=== PATIENT | female | born 1995 | race American Indian/Alaskan Native ===

== ENCOUNTER 2017-04-07 07:17 | Inpatient (IN) | payer MEDICAID ==
[2017-04-07] MEDS ORDERED: Bupivacaine 0.5% 30 ML SDV ONE (11:07)
[2017-04-07] MEDS ORDERED: Morphine PF 1 MG/ML Amp ONE (11:11)
--- NOTE | 2017-04-07 11:15 | PCM.PREANE ---
Preanesthetic Assessment - Procedure Proposed Procedure: Repeat C Section - Anesthesia/Transfusion/Family Hx Anesthesia History: Prior Anesthesia Without Reaction Family History of Anesthesia Reaction: No Transfusion History: No Prior Transfusion(s) - Review of Systems General: No Symptoms Pulmonary: No Symptoms Cardiovascular: No Symptoms Gastrointestinal: No Symptoms Neurological: No Symptoms Other: Reports: None - Physical Assessment NPO Status Date: 04/07/17 NPO Status Time: 10:30 (Sip Water ) Pulse: 78 O2 Sat by Pulse Oximetry: 98 Respiratory Rate: 18 Blood Pressure: 146/104 Temperature: 97.7 C Weight: 119.748 kg ASA Class: 2 Mental Status: Alert & Oriented x3 Airway Class: Mallampati = 1 Dentition: Reports: Normal Dentition Thyro-Mental Finger Breadths: 3 Mouth Opening Finger Breadths: 3 ROM/Head Extension: Full Lungs: Clear to Auscultation, Normal Respiratory Effort Cardiovascular: Regular Rate, Regular Rhythm - Allergies Allergies/Adverse Reactions: Allergies Allergy/AdvReac Type Severity Reaction Status Date / Time No Known Allergies Allergy Verified 12/23/15 05:17 - Acknowledgements Anesthesia Type Planned: Spinal Pt an Appropriate Candidate for the Planned Anesthesia: Yes Alternatives and Risks of Anesthesia Discussed w Pt/Guardian: Yes Pt/Guardian Understands and Agrees with Anesthesia Plan: Yes PreAnesthesia Questionnaire - Past Health History Medical/Surgical History: Denies 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 [No Known Home Meds] 08/09/15 [History] - CURRENT (IN HOUSE) MEDS Current Meds: Current Medications Citric Acid/Sodium Citrate (Bicitra Solution) 30 ml PO ONETIME ONE Stop: 04/07/17 11:31 Lactated Ringer's (Ringers, Lactated) 1,000 mls @ 125 mls/hr IV ASDIRECTED LEELEE Metoclopramide HCl (Reglan) 10 mg IVPUSH ONETIME ONE Stop: 04/07/17 11:31
--- NOTE | 2017-04-07 11:16 | PCM.LDHP ---
L&D History of Present Illness - General Date of Service: 04/07/17 Admit Problem/Dx: Patient Status Order with Admit Dx/Problem 04/07/17 10:58 Patient Status [ADT] Routine Admission Diagnosis/Problem Admission Diagnosis/Problem Normal labor Source of Information: Patient History Limitations: Reports: No Limitations - History of Present Illness Introduction:: 21 y/o MADDI 04/20/2017 twin gestation with Spontaneous rupture of membranes at approximately 1045 this AM when collecting urine for clinic visit. Cecilia/Transverse lie, prior CS. Had repeat previously scheduled for 04/20/17. GBS carrier. Uncertain dates. EGA 38w1d. Plan repeat CS Improves with: Reports: None Worsens with: Reports: None Associated Symptoms: Reports: N - Related Data Allergies/Adverse Reactions: Allergies Allergy/AdvReac Type Severity Reaction Status Date / Time No Known Allergies Allergy Verified 12/23/15 05:17 Home Medications: Home Meds . 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: : 2 Para: 1 (1001) LMP (Approximate): Psychiatric History: Reports: Depression - Past Surgical History HEENT Surgical History: Reports: Tonsillectomy Social & Family History - Family History Family Medical History: Noncontributory - Tobacco Use Smoking Status *Q: Current Every Day Smoker Years of Tobacco use: 12 Packs/Tins Daily: 0.5 - Recreational Drug Use Recreational Drug Use: No H&P Review of Systems - Review of Systems: Review Of Systems: See Below General: Reports: No Symptoms HEENT: Reports: No Symptoms Pulmonary: Reports: No Symptoms Cardiovascular: Reports: No Symptoms Gastrointestinal: Reports: No Symptoms Genitourinary: Reports: No Symptoms Musculoskeletal: Reports: No Symptoms Skin: Reports: No Symptoms Psychiatric: Reports: No Symptoms Neurological: Reports: No Symptoms Hematologic/Lymphatic: Reports: No Symptoms Immunologic: Reports: No Symptoms L&D Exam - Exam Exam: See Below - OB Specific Fundal Height In cm: 44 ([facility]OM CL 1045 04/07/17) Contraction Intensity: Mild Movement: Active Heart Tones: Present Heart Tones per Min: 140 Heart Rate (FHR) Variability: Moderate (6-25 bmp) Presentation: Breech (Breech/transverse lie twins) - Morales Score Morales Score Cervix Position: Posterior Morales Score Consistency: Soft Morales Score Effacement: 31-50% Morales Score Dilation: 1-2 cm Morales Score Infant's Station: -3 Morales Score Total: 4 - Exam General: Alert, Oriented HEENT: Conjunctiva Clear, Mucosa Moist & [place], TMs Clear, PERRLA Neck: Supple, Trachea Midline Lungs: Clear to Auscultation, Normal Respiratory Effort Cardiovascular: Regular Rate, Regular Rhythm GI/Abdominal Exam: Normal Bowel Sounds, Soft, Non-Tender Genitourinary: Normal external exam, Normal bimanual exam, Normal speculum exam Extremities: Normal Inspection, Normal Range of Motion, Non-Tender, No Pedal Edema, Normal Capillary Refill Skin: Warm, Dry, Intact Neurological: Reflexes Equal Bilateral Psychiatric: Alert, Normal Affect, Normal Mood - Problem List (1) 38 weeks gestation of SNOMED Code(s): 70933042 ICD Code: Z3A.38 - 38 WEEKS GESTATION OF Status: Acute Current Visit: Yes (2) GBS carrier SNOMED Code(s): 2494022240281 ICD Code: Z22.330 - CARRIER OF GROUP B STREPTOCOCCUS Status: Acute Current Visit: Yes (3) Twin gestation in third trimester SNOMED Code(s): 06741418 ICD Code: O30.003 - TWIN PREG, UNSP NUM PLCNTA & AMNIO SACS, THIRD TRIMESTER Status: Acute Current Visit: Yes Qualifiers: Multiple gestation type: dichorionic and diamniotic Qualified Code(s): O30.043 - Twin , dichorionic/diamniotic, third trimester (4) Twin delivery by SNOMED Code(s): 870758722 ICD Code: O30.009 - TWIN , UNSP NUM PLCNTA & AMNIO SACS, UNSP TRIMESTER Status: Acute Current Visit: Yes (5) History of delivery affecting SNOMED Code(s): 550714662 ICD Code: O34.219 - MATERNAL CARE FOR UNSP TYPE SCAR FROM PREVIOUS DEL Status: Acute Current Visit: Yes Problem List Initiated/Reviewed/Updated: No Orders Last 24hrs: Active Orders 24 hr Category Date Time Status Patient Status [ADT] Routine ADT 04/07/17 10:58 Active Communication Order [RC] ROUTINE Care 04/07/17 10:58 Active Heart Tones [RC] PER UNIT ROUTINE Care 04/07/17 10:58 Active Procedure Site Prep Instruct [RC] ASDIRECTED Care 04/07/17 10:58 Active Verify Patient Consent Obtain [RC] PER UNIT ROUTINE Care 04/07/17 10:58 Active Vital Signs [RC] PFP Care 04/07/17 10:58 Active CBC WITH AUTO DIFF [HEME] Stat Lab 04/07/17 10:58 Ordered TYPE AND SCREEN [BBK] Stat Lab 04/07/17 10:58 Ordered Citric Acid/Sodium Citrate [Bicitra Solution] Med 04/07/17 11:30 Once 30 ml PO ONETIME ONE Lactated Ringers [Ringers, Lactated] 1,000 ml Med 04/07/17 11:00 Active IV ASDIRECTED Metoclopramide [Reglan] Med 04/07/17 11:30 Once 10 mg IVPUSH ONETIME ONE Peripheral IV Insertion Adult [OM.PC] Routine Oth 04/07/17 10:58 Ordered Schedule Procedure [COMM] Per Unit Routine Oth 04/07/17 10:58 Ordered Resuscitation Status Routine Resus Stat 04/07/17 10:58 Ordered Medication Orders Citric Acid/Sodium Citrate (Bicitra Solution) 30 ml PO ONETIME ONE Stop: 04/07/17 11:31 Lactated Ringer's (Ringers, Lactated) 1,000 mls @ 125 mls/hr IV ASDIRECTED LEELEE Metoclopramide HCl (Reglan) 10 mg IVPUSH ONETIME ONE Stop: 04/07/17 11:31 Assessment/Plan Comment:: Plan repeat section.
[2017-04-07] MEDS ORDERED: Citric Acid/Sodium Citrate Solution 30 ML Cup PO ONE (11:30)
[2017-04-07] MEDS ORDERED: Metoclopramide 10 MG/2 ML SDV IVPUSH ONE (11:30)
[2017-04-07] MEDS ORDERED: ceFAZolin 1 GM Vial ONE ×2 (11:31→11:42)
[2017-04-07] MEDS: Lactated Ringers 1,000 ML IV SCH ×2 (11:34→13:18)
[2017-04-07] MEDS ORDERED: Ketorolac 30 MG/ML SDV ONE (12:15)
[2017-04-07] MEDS ORDERED: Lactated Ringers 1,000 ML ONE (12:18)
[2017-04-07] MEDS ORDERED: Oxytocin 10 Units/1 ML SDV ONE (12:18)
[2017-04-07] MEDS ORDERED: diphenhydrAMINE 50 MG/ML SDV IVPUSH PRN ×2 (12:44→13:15)
--- NOTE | 2017-04-07 12:46 | PCM.POSTAN ---
POST ANESTHESIA ASSESSMENT - MENTAL STATUS Mental Status: Alert, Oriented - VITAL SIGNS Pulse Rate: 63 SaO2: 97 Resp Rate: 10 Blood Pressure: 117/61 Temperature: 36.3 C - RESPIRATORY Respiratory Status: Respiratory Rate WNL, Airway Patent, O2 Saturation Stable, Supplemental Oxygen - CARDIOVASCULAR CV Status: Pulse Rate WNL, Blood Pressure Stable - GASTROINTESTINAL GI Status: No Symptoms - PAIN Pain Score: 0 - POST OP HYDRATION Hydration Status: Adequate & Stable - OBSERVATIONS Free Text/Narrative:: no anesthesia complications noted
--- NOTE | 2017-04-07 12:56 | PCM.OPNOTE ---
- General Post-Op/Procedure Note Date of Surgery/Procedure: 04/07/17 Operative Procedure(s): Low segment transverse repeat Pre Op Diagnosis: Twin gestation breech transverse lie, spontaneous premature rupture membranes less than 24 hours before delivery. Previous section. 38 weeks 1 day. Post-Op Diagnosis: Same Anesthesia Technique: Spinal Primary Surgeon: Mauricio Moscoso Secondary Surgeon: Alexis Toure Anesthesia Provider: Agustin Spicer Pick Pulling Machine Tender: Rajat Tompkins (PAS) Reason Pick Pulling Machine Tender Was Necessary: Difficulty of procedure, retraction, decrease comorbidity and co-mortality Role of Pick Pulling Machine Tender: Difficulty of procedure, retraction, decrease comorbidity and co-mortality Fluid Replacement, Intraop: 3,000 Output, Urine Amount: 20 EBL in mLs: 600 Drain/Tube Comments:: Bonds to gravity drainage close system Complications: None Condition: Good Free Text/Narrative:: Patient had spontaneous rupture membranes at 10:45 AM clear fluid 04/07/17. Presented to labor and delivery confirmed gross pooling with rupture membranes and patient prepared for repeat section. Patient had been scheduled for repeat section on 04/20/17. Patient was transported to operating room #1 and placed under spinal anesthesia in the supine position with wedge under the right hip and right flank. C drape was applied to help remove the panniculus of the operative area. The old incision was marked with a skin marking pencil after having been prepared in a sterile fashion. She was then draped in sterile fashion. Bonds catheter had been placed gravity drainage. SCDs in place and functioning prior surgery. Patient received 3 g of Ancef prior to the procedure. Vaginal prep was also performed. Timeout performed confirming name, date of , procedure as repeat section twin . After confirming adequate level of anesthesia, the patient's mother was to be brought to the operating room but no one to take care of the patient's other child so unable to come to the operating room. A Pfannenstiel incision was made after injecting 20 mL of 0.5% Marcaine in the planned incision area for postoperative pain abatement. Incision care was sharp section to into the anterior fascia peritoneal cavity was entered without difficulty bladder flap created pushed caudad low segment transverse performed. Clear fluid upon entry into twin a gestational sac breech delivered left sacrum anterior with gentle flexion of both lower extremities the shoulders were then delivered left and right and the head delivered without difficulty. Cord was clamped. Second twin was converted from transverse lie to cephalic presentation and amniotomy performed and the twin delivered without difficulty. Twin A delivered male liveborn 1209 hrs. on Wednesday04/07/17 Apgars 8/9 weight 20/6/80 grams twin B female delivered 1210 hrs. on Wednesday04/07/17 Apgars 8/9 weight 20/9/[address] 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 After both twins delivered twin A and twin B cord blood collected. No cords were three-vessel cords. The placenta was delivered manually at 1211 hrs. and discarded after inspection. Diamnionic dichorionic. The endometrial cavity was inspected cervical patency assured sponge needle pack instrument and sharp count correct times one and uterine incision closed in 2 layers first layer running locking suture of 0 Monocryl second layer horizontal imbricating suture modified Lembert type both tubes and ovaries were normal clot screen from the gutters and cul-de-sac uterus replaced into abdominal cavity and the incision reinspected no bleeding. Sponge needle pack asthma sharp count correct 2 and the abdominal cavity was closed with #1 PDS for the anterior fascia. The skin was closed with subcuticular 3-0 Monocryl on Albaro needle. Dermabond Preneo applied. Patient was transported postanesthesia care unit in satisfactory condition. No blood transfusions were required. Operative time 21 minutes. Patient given Toradol at 1225 hrs. Will continue Toradol every 6 hours for a total of 4 doses.
[2017-04-07] MEDS ORDERED: Sodium Chloride 0.9% 10 ML Syringe FLUSH PRN (13:15)
[2017-04-07] MEDS ORDERED: Acetaminophen 325 MG Tab PO PRN (13:15)
[2017-04-07] MEDS ORDERED: Dextrose 5%-Lactated Ringers 1,000 ML IV SCH (13:15)
[2017-04-07] MEDS ORDERED: Lanolin 100% Cream 7 GM Tube TOP PRN (13:15)
[2017-04-07] MEDS ORDERED: Docusate Sodium 100 MG Cap PO PRN (13:15)
[2017-04-07] MEDS ORDERED: Measles, Mumps & Rubella Vaccine 0.5 ML SDV SUBCUT ONE (13:15)
[2017-04-07] MEDS ORDERED: ePHEDrine 50 MG/ML SDV IVPUSH PRN (13:15)
[2017-04-07] MEDS ORDERED: Naloxone 0.4 MG/ML SDV IVPUSH PRN (13:15)
[2017-04-07] MEDS: Ketorolac 30 MG/ML SDV IVPUSH SCH (18:26)
[2017-04-07] MEDS: Simethicone 80 MG Tab.Chew PO SCH ×3 (18:29→22:57)
[2017-04-07] MEDS ORDERED: Sodium Chloride 0.9% 1,000 ML IV ONE (19:06)
[2017-04-07] MEDS ORDERED: Lactated Ringers 1,000 ML IV SCH ×2 (20:45→21:45)
[2017-04-08] MEDS: Ketorolac 30 MG/ML SDV IVPUSH SCH ×2 (00:46→07:38)
[2017-04-08] MEDS ORDERED: Furosemide 20 MG/2 ML VIAL IVPUSH ONE (02:16)
[2017-04-08] MEDS ORDERED: Sodium Chloride 0.9% 1,000 ML IV SCH (07:15)
--- NOTE | 2017-04-08 08:43 | PCM.SN ---
- Free Text/Narrative Note: /postop day 1 Afebrile. Breast-feeding. Uterus involuting normally. Incision normal no heavy vaginal bleeding. No leg cramping. Hemoglobin preop 8.7 and hemoglobin this morning 6.8. Talked with patient about blood transfusion sees asymptomatic at the present time will allow to ambulate shower and determine how she does during the day. She would like to avoid blood transfusion if possible.
[2017-04-08] MEDS: Acetaminophen/oxyCODONE 325-5 MG Tab PO PRN ×3 (12:50→23:06)
[2017-04-08] MEDS: Simethicone 80 MG Tab.Chew PO SCH ×3 (12:52→23:08)
--- NOTE | 2017-04-08 14:10 | PCM48HPAN ---
Post Anesthesia Note - EVALUATION WITHIN 48HRS OF ANESTHETIC Vital Signs in Normal Range: Yes Patient Participated in Evaluation: Yes Respiratory Function Stable: Yes Airway Patent: Yes Cardiovascular Function Stable: Yes Hydration Status Stable: Yes Pain Control Satisfactory: Yes Nausea and Vomiting Control Satisfactory: Yes Mental Status Recovered: Yes - COMMENTS/OBSERVATIONS Free Text/Narrative:: patient states she feels fine except for some slight itching. Deneis any headache, back pain or residual numbenss or tingling to LE.
[2017-04-09] MEDS: Ibuprofen 600 MG Tab PO PRN ×2 (01:23→09:05)
[2017-04-09] MEDS: Acetaminophen/oxyCODONE 325-5 MG Tab PO PRN (05:27)
[2017-04-09] MEDS: Simethicone 80 MG Tab.Chew PO SCH (09:05)
--- NOTE | 2017-04-09 12:11 | PCM.DCSUM1 ---
Discharge Summary - Hospital Course Free Text/Narrative:: [facility], [place], operated by [facility] Post-Op/Procedure Note Patient Name: IRMA MONCADA Date of : 89 Patient Status: Inpatient Attending Provider: Mauricio Moscoso Date: 04/07/17 12:46 Initialization Date: 04/07/17 12:46 - General Post-Op/Procedure Note Date of Surgery/Procedure: 04/07/17 Operative Procedure(s): Low segment transverse repeat Pre Op Diagnosis: Twin gestation breech transverse lie, spontaneous premature rupture membranes less than 24 hours before delivery. Previous section. 38 weeks 1 day. Post-Op Diagnosis: Same Anesthesia Technique: Spinal Primary Surgeon: Mauricio Moscoso Secondary Surgeon: Alexis Toure Anesthesia Provider: Agustin Spicer Trade Promotion Analyst: Rajat Tompkins (PAS) Reason Trade Promotion Analyst Was Necessary: Difficulty of procedure, retraction, decrease comorbidity and co-mortality Role of Trade Promotion Analyst: Difficulty of procedure, retraction, decrease comorbidity and co-mortality Fluid Replacement, Intraop: 3,000 Output, Urine Amount: 20 EBL in mLs: 600 Drain/Tube Comments:: Bonds to gravity drainage close system Complications: None Condition: Good Free Text/Narrative:: Patient had spontaneous rupture membranes at 10:45 AM clear fluid 04/07/17. Presented to labor and delivery confirmed gross pooling with rupture membranes and patient prepared for repeat section. Patient had been scheduled for repeat section on 04/20/17. Patient was transported to operating room #1 and placed under spinal anesthesia in the supine position with wedge under the right hip and right flank. C drape was applied to help remove the panniculus of the operative area. The old incision was marked with a skin marking pencil after having been prepared in a sterile fashion. She was then draped in sterile fashion. Bonds catheter had been placed gravity drainage. SCDs in place and functioning prior surgery. Patient received 3 g of Ancef prior to the procedure. Vaginal prep was also performed. Timeout performed confirming name, date of , procedure as repeat section twin . After confirming adequate level of anesthesia, the patient's mother was to be brought to the operating room but no one to take care of the patient's other child so unable to come to the operating room. A Pfannenstiel incision was made after injecting 20 mL of 0.5% Marcaine in the planned incision area for postoperative pain abatement. Incision care was sharp section to into the anterior fascia peritoneal cavity was entered without difficulty bladder flap created pushed caudad low segment transverse performed. Clear fluid upon entry into twin a gestational sac breech delivered left sacrum anterior with gentle flexion of both lower extremities the shoulders were then delivered left and right and the head delivered without difficulty. Cord was clamped. Second twin was converted from transverse lie to cephalic presentation and amniotomy performed and the twin delivered without difficulty. Twin A delivered male liveborn 1209 hrs. on Wednesday04/07/17 Apgars 8/9 weight 20/6/80 grams twin B female delivered 1210 hrs. on Wednesday04/07/17 Apgars 8/9 weight 20/9/[address] Cheung bill clerk in attendance and cared for the newborns. After both twins delivered twin A and twin B cord blood collected. No cords were three-vessel cords. The placenta was delivered manually at 1211 hrs. and discarded after inspection. Diamnionic dichorionic. The endometrial cavity was inspected cervical patency assured sponge needle pack instrument and sharp count correct times one and uterine incision closed in 2 layers first layer running locking suture of 0 Monocryl second layer horizontal imbricating suture modified Lembert type both tubes and ovaries were normal clot screen from the gutters and cul-de-sac uterus replaced into abdominal cavity and the incision reinspected no bleeding. Sponge needle pack asthma sharp count correct 2 and the abdominal cavity was closed with #1 PDS for the anterior fascia. The skin was closed with subcuticular 3-0 Monocryl on Albaro needle. Dermabond Preneo applied. Patient was transported postanesthesia care unit in satisfactory condition. No blood transfusions were required. Operative time 21 minutes. Patient given Toradol at 1225 hrs. Will continue Toradol every 6 hours for a total of 4 doses. Additional CC's: Bruce Faith Patient had low hemoglobin prior to , second day hemoglobin 6.2 transfused 2 units packed red blood cells. HPI Initial Comments: [facility], [place], operated by [facility] Post-Op/Procedure Note Patient Name: IRMA MONCADA Date of : [birth year] Patient Status: Inpatient Attending Provider: Mauricio Moscoso Date: 04/07/17 12:46 Initialization Date: 04/07/17 12:46 - General Post-Op/Procedure Note Date of Surgery/Procedure: 04/07/17 Operative Procedure(s): Low segment transverse repeat Pre Op Diagnosis: Twin gestation breech transverse lie, spontaneous premature rupture membranes less than 24 hours before delivery. Previous section. 38 weeks 1 day. Post-Op Diagnosis: Same Anesthesia Technique: Spinal Primary Surgeon: Mauricio Moscoso Secondary Surgeon: Alexis Toure Anesthesia Provider: Agustin Spicer Trade Promotion Analyst: Rajat Tompkins (PAS) Reason Trade Promotion Analyst Was Necessary: Difficulty of procedure, retraction, decrease comorbidity and co-mortality Role of Trade Promotion Analyst: Difficulty of procedure, retraction, decrease comorbidity and co-mortality Fluid Replacement, Intraop: 3,000 Output, Urine Amount: 20 EBL in mLs: 600 Drain/Tube Comments:: Bonds to gravity drainage close system Complications: None Condition: Good Free Text/Narrative:: Patient had spontaneous rupture membranes at 10:45 AM clear fluid 04/07/17. Presented to labor and delivery confirmed gross pooling with rupture membranes and patient prepared for repeat section. Patient had been scheduled for repeat section on 04/20/17. Patient was transported to operating room #1 and placed under spinal anesthesia in the supine position with wedge under the right hip and right flank. C drape was applied to help remove the panniculus of the operative area. The old incision was marked with a skin marking pencil after having been prepared in a sterile fashion. She was then draped in sterile fashion. Bonds catheter had been placed gravity drainage. SCDs in place and functioning prior surgery. Patient received 3 g of Ancef prior to the procedure. Vaginal prep was also performed. Timeout performed confirming name, date of , procedure as repeat section twin . After confirming adequate level of anesthesia, the patient's mother was to be brought to the operating room but no one to take care of the patient's other child so unable to come to the operating room. A Pfannenstiel incision was made after injecting 20 mL of 0.5% Marcaine in the planned incision area for postoperative pain abatement. Incision care was sharp section to into the anterior fascia peritoneal cavity was entered without difficulty bladder flap created pushed caudad low segment transverse performed. Clear fluid upon entry into twin a gestational sac breech delivered left sacrum anterior with gentle flexion of both lower extremities the shoulders were then delivered left and right and the head delivered without difficulty. Cord was clamped. Second twin was converted from transverse lie to cephalic presentation and amniotomy performed and the twin delivered without difficulty. Twin A delivered male liveborn 1209 hrs. on Wednesday04/07/17 Apgars 8/9 weight 20/6/80 grams twin B female delivered 1210 hrs. on Wednesday04/07/17 Apgars 8/9 weight 20/9/[address] Cheung bill clerk in attendance and cared for the newborns. After both twins delivered twin A and twin B cord blood collected. No cords were three-vessel cords. The placenta was delivered manually at 1211 hrs. and discarded after inspection. Diamnionic dichorionic. The endometrial cavity was inspected cervical patency assured sponge needle pack instrument and sharp count correct times one and uterine incision closed in 2 layers first layer running locking suture of 0 Monocryl second layer horizontal imbricating suture modified Lembert type both tubes and ovaries were normal clot screen from the gutters and cul-de-sac uterus replaced into abdominal cavity and the incision reinspected no bleeding. Sponge needle pack asthma sharp count correct 2 and the abdominal cavity was closed with #1 PDS for the anterior fascia. The skin was closed with subcuticular 3-0 Monocryl on Albaro needle. Dermabond Preneo applied. Patient was transported postanesthesia care unit in satisfactory condition. No blood transfusions were required. Operative time 21 minutes. Patient given Toradol at 1225 hrs. Will continue Toradol every 6 hours for a total of 4 doses. Additional CC's: Bruce Faith Patient had low hemoglobin prior to , second day hemoglobin 6.2 transfused 2 units packed red blood cells. Brief History: [facility], [place], operated by [facility] . Post-Op/Procedure Note. [facility]: [id number]. Date of : Patient Status: Inpatient. Attending Provider: Mauricio Moscosoount Number: [id number]. Date: 04/07/17 12:46Initialization Date: 04/07/17 12:46. - General Post-Op/Procedure Note. Date of Surgery/Procedure: 04/07/17. Operative Procedure(s): Low segment transverse repeat. Pre Op Diagnosis: Twin gestation breech transverse lie, spontaneous premature rupture membranes less than 24 hours before delivery. Previous section. 38 weeks 1 day. Post-Op Diagnosis: Same. Anesthesia Technique: Spinal. Primary Surgeon: Mauricio Moscoso. Secondary Surgeon: Alexis Toure. Anesthesia Provider: Agustin Spicer. Trade Promotion Analyst: Rajat Tompkins (PAS). Reason Trade Promotion Analyst Was Necessary: Difficulty of procedure, retraction, decrease comorbidity and co -mortality. Role of Trade Promotion Analyst: Difficulty of procedure, retraction, decrease comorbidity and co-mortality. Fluid Replacement, Intraop: 3,000. Output, Urine Amount: 20. EBL in mLs: 600. Drain/Tube Comments:: Bonds to gravity drainage close system. Complications: None. Condition: Good. Free Text/ Narrative:: Patient had spontaneous rupture membranes at 10:45 AM clear fluid . Presented to labor and delivery confirmed gross pooling with rupture membranes and patient prepared for repeat section. Patient had been scheduled for repeat section on 04/20/17. Patient was transported to operating room #1 and placed under spinal anesthesia in the supine position with wedge under the right hip and right flank. C drape was applied to help remove the panniculus of the operative area. The old incision was marked with a skin marking pencil after having been prepared in a sterile fashion. She was then draped in sterile fashion. Bonds catheter had been placed gravity drainage. SCDs in place and functioning prior surgery. Patient received 3 g of Ancef prior to the procedure. Vaginal prep was also performed. Timeout performed confirming name, date of , procedure as repeat section twin . After confirming adequate level of anesthesia, the patient's mother was to be brought to the operating room but no one to take care of the patient's other child so unable to come to the operating room. A Pfannenstiel incision was made after injecting 20 mL of 0.5% Marcaine in the planned incision area for postoperative pain abatement. Incision care was sharp section to into the anterior fascia peritoneal cavity was entered without difficulty bladder flap created pushed caudad low segment transverse performed. Clear fluid upon entry into twin a gestational sac breech delivered left sacrum anterior with gentle flexion of both lower extremities the shoulders were then delivered left and right and the head delivered without difficulty. Cord was clamped. Second twin was converted from transverse lie to cephalic presentation and amniotomy performed and the twin delivered without difficulty. Twin A delivered male liveborn 1209 hrs. on Wednesday04/07/17 Apgars 8/9 weight 20/6/ 80 grams twin B female delivered 1210 hrs. on Wednesday04/07/17 Apgars 8/9 weight 20/9/[address] Cheung bill clerk in attendance and cared for the newborns. After both twins delivered twin A and twin B cord blood collected. No cords were three-vessel cords. The placenta was delivered manually at 1211 hrs. and discarded after inspection. Diamnionic dichorionic. The endometrial cavity was inspected cervical patency assured sponge needle pack instrument and sharp count correct times one and uterine incision closed in 2 layers first layer running locking suture of 0 Monocryl second layer horizontal imbricating suture modified Lembert type both tubes and ovaries were normal clot screen from the gutters and cul-de-sac uterus replaced into abdominal cavity and the incision reinspected no bleeding. Sponge needle pack asthma sharp count correct 2 and the abdominal cavity was closed with #1 PDS for the anterior fascia. The skin was closed with subcuticular 3-0 Monocryl on Albaro needle. Dermabond Preneo applied. Patient was transported postanesthesia care unit in satisfactory condition. No blood transfusions were required. Operative time 21 minutes. Patient given Toradol at 1225 hrs. Will continue Toradol every 6 hours for a total of 4 doses. Additional CC's: Bruce Faith. Patient had low hemoglobin prior to , second day hemoglobin 6.2 transfused 2 units packed red blood cells. - Discharge Data Discharge Date: 04/09/17 Discharge Disposition: Home, Self-Care 01 Condition: Good - Discharge Diagnosis/Problem(s) (1) 38 weeks gestation of SNOMED Code(s): 94549350 ICD Code: Z3A.38 - 38 WEEKS GESTATION OF Status: Acute Current Visit: Yes (2) GBS carrier SNOMED Code(s): 1374266471091 ICD Code: Z22.330 - CARRIER OF GROUP B STREPTOCOCCUS Status: Acute Current Visit: Yes (3) Twin gestation in third trimester SNOMED Code(s): 80770790 ICD Code: O30.003 - TWIN PREG, UNSP NUM PLCNTA & AMNIO SACS, THIRD TRIMESTER Status: Acute Current Visit: Yes Qualifiers: Multiple gestation type: dichorionic and diamniotic Qualified Code(s): O30.043 - Twin , dichorionic/diamniotic, third trimester (4) Twin delivery by SNOMED Code(s): 400302487 ICD Code: O30.009 - TWIN , UNSP NUM PLCNTA & AMNIO SACS, UNSP TRIMESTER Status: Acute Current Visit: Yes (5) History of delivery affecting SNOMED Code(s): 180564694 ICD Code: O34.219 - MATERNAL CARE FOR UNSP TYPE SCAR FROM PREVIOUS DEL Status: Acute Current Visit: Yes - Patient Summary/Data Operative Procedure(s) Performed: Low segment transverse repeat Complications: Anemia preop and postop requiring transfusion 2 units packed red blood cells. Prior to transfusion hemoglobin 6.2. Consults: Consultations 04/07/17 17:37 Consult to Moisture Meter Reader [CONS] Routine Hospital Course: Uneventful with the exception of requiring 2 units packed red blood cells because of anemia present prior to delivery and . Hemoglobin prior to transfusion 6.2. - Patient Instructions Diet: Regular Diet as Tolerated Driving: Do Not Drive ( or for or for 48 hours after last dose of Percocet) Showering/Bathing: May Shower, No Tub Bathing/Swimming Wound/Incision Care: Keep Operative Site/Wound Site Clean and Dry Notify Provider of: Fever, Increased Pain, Swelling and Redness, Drainage, Nausea and/or Vomiting Other/Special Instructions: E PDS 07/05 no suicidal plans, ideations, desire to hurt self or others. - Discharge Plan Prescriptions/Med Rec: Acetaminophen/oxyCODONE [Percocet 325-5 MG] 1 tab PO Q8H PRN #15 tablet PRN Reason: Pain (Moderate 4-6) Home Medications: Home Meds Acetaminophen [Tylenol] 650 mg PO Q4H PRN tablet 04/09/17 [Rx] Acetaminophen/oxyCODONE [Percocet 325-5 MG] 1 tab PO Q8H PRN #15 tablet [Rx] Docusate Sodium [Colace] 100 mg PO Q12H PRN cap 04/09/17 [Rx] Ibuprofen [IJD: Ibuprofen] 600 mg PO Q6H PRN tablet 04/09/17 [Rx] Lanolin [Lansinoh HPA] 1 applic TOP ASDIRECTED PRN tube 04/09/17 [Rx] Simethicone 160 mg PO QID tab.chew 04/09/17 [Rx] Referrals: Mauricio Moscoso MD [Primary Care Provider] - (Make an appointment to return to clinic Wednesday04/20/17.) - Discharge Summary/Plan Comment DC Time >30 min.: No - Patient Data Vitals - Most Recent: Last Vital Signs Temp 97.9 F 04/09/17 09:27 Pulse 65 04/09/17 09:35 Resp 20 04/09/17 08:58 BP 159/95 H 04/09/17 09:35 Pulse Ox 98 04/09/17 09:35 Weight - Most Recent: 264 lb I&O - Last 24 hours: Intake & Output 04/08/17 04/09/17 04/09/17 22:59 06:59 14:59 Intake Total 240 360 Balance 240 360 Lab Results - Last 24 hrs: Laboratory Results - last 24 hr 04/07/17 04/09/17 Range/Units 11:10 06:05 WBC 9.61 (3.98-10.04) K/mm3 RBC 2.70 L (3.98-5.22) M/mm3 Hgb 6.2 L* (11.2-15.7) gm/L Hct 20.5 L (34.1-44.9) % MCV 75.9 L (79.4-94.8) fl MCH 23.0 L (25.6-32.2) pg MCHC 30.2 L (32.2-35.5) g/dl RDW Std Deviation 39.7 (36.4-46.3) fL Plt Count 219 (182-369) K/mm3 MPV 11.0 (9.4-12.3) fl Blood Type A POSITIVE Gel Antibody Screen Negative Crossmatch See Detail Med Orders - Current: Current Medications Acetaminophen (Tylenol) 650 mg PO Q4H PRN PRN Reason: mild pain or fever Diphenhydramine HCl (Benadryl) 25 mg IVPUSH Q6H PRN PRN Reason: Itching or Nausea Docusate Sodium (Colace) 100 mg PO Q12H PRN PRN Reason: Constipation Emollient Ointment (Lansinoh Hpa) 0 gm TOP ASDIRECTED PRN PRN Reason: Sore Nipples Ephedrine Sulfate (Ephedrine Sulfate) 5 mg IVPUSH SEECOMMENT PRN PRN Reason: Other Lactated Ringer's (Ringers, Lactated) 1,000 mls @ 1,000 mls/hr IV ASDIRECTED [facility] Last Admin: 04/07/17 20:54 Dose: 1,000 mls/hr Lactated Ringer's (Ringers, Lactated) 1,000 mls @ 500 mls/hr IV ASDIRECTED [facility] Sodium Chloride (Normal Saline) 1,000 mls @ 125 mls/hr IV ASDIRECTED [facility] Ibuprofen (Motrin) 600 mg PO Q6H PRN PRN Reason: mild pain or fever Last Admin: 04/09/17 09:05 Dose: 600 mg Naloxone HCl (Narcan) 0.1 mg IVPUSH SEECOMMENT PRN PRN Reason: Respiratory Depression Oxycodone/Acetaminophen (Percocet 325-5 Mg) 2 tab PO Q4H PRN PRN Reason: Pain (moderate 4-6) Last Admin: 04/09/17 05:27 Dose: 2 tab Simethicone (Simethicone) 160 mg PO QID [facility] Last Admin: 04/09/17 09:05 Dose: 160 mg Sodium Chloride (Saline Flush) 10 ml FLUSH ASDIRECTED PRN PRN Reason: Keep Vein Open Discontinued Medications Bupivacaine HCl (Marcaine 0.5%) Confirm Administered Dose 30 ml .ROUTE .STK-MED ONE Stop: 04/07/17 11:08 Last Admin: 04/07/17 12:06 Dose: 20 ml Cefazolin Sodium (Ancef) Confirm Administered Dose 2 gm .ROUTE .STK-MED ONE Stop: 04/07/17 11:32 Cefazolin Sodium (Ancef) Confirm Administered Dose 1 gm .ROUTE .STK-MED ONE Stop: 04/07/17 11:43 Citric Acid/Sodium Citrate (Bicitra Solution) 30 ml PO ONETIME ONE Stop: 04/07/17 11:31 Last Admin: 04/07/17 11:33 Dose: 30 ml Diphenhydramine HCl (Benadryl) 25 mg IVPUSH Q6H PRN PRN Reason: Itching Furosemide (Lasix) 20 mg IVPUSH NOW ONE Stop: 04/08/17 02:17 Last Admin: 04/08/17 03:18 Dose: 20 mg Lactated Ringer's (Ringers, Lactated) 1,000 mls @ 125 mls/hr IV ASDIRECTED [facility] Last Admin: 04/07/17 13:18 Dose: 125 mls/hr Lactated Ringer's (Ringers, Lactated) Confirm Administered Dose 1,000 mls @ as directed .ROUTE .STK-MED ONE Stop: 04/07/17 12:19 Dextrose/Lactated Ringer's (Dextrose 5%-Lactated Ringers) 1,000 mls @ 125 mls/ hr IV ASDIRECTED [facility] Stop: 04/07/17 21:14 Last Infusion: 04/08/17 01:45 Dose: 125 mls/hr Sodium Chloride (Normal Saline) 1,000 mls @ 0 mls/hr IV ONETIME ONE Stop: 04/07/17 19:07 Last Admin: 04/07/17 19:26 Dose: 500 mls/hr Ketorolac Tromethamine (Toradol) Confirm Administered Dose 30 mg .ROUTE .STK- MED ONE Stop: 04/07/17 12:16 Ketorolac Tromethamine (Toradol) 30 mg IVPUSH Q6H LEELEE Stop: 04/08/17 06:31 Last Admin: 04/08/17 07:38 Dose: 30 mg Measles/Mumps/Rubella Vaccine Live (M-M-R Ii Vaccine) 0.5 ml SUBCUT .ONCE ONE Stop: 04/07/17 13:16 Metoclopramide HCl (Reglan) 10 mg IVPUSH ONETIME ONE Stop: 04/07/17 11:31 Last Admin: 04/07/17 11:15 Dose: 10 mg Morphine Sulfate (Duramorph Pf) Confirm Administered Dose 1 mg .ROUTE .STK-MED ONE Stop: 04/07/17 11:12 Oxytocin (Pitocin) Confirm Administered Dose 20 unit .ROUTE .STK-MED ONE Stop: 04/07/17 12:19 *Q Meaningful Use (DIS) - VTE *Q VTE Criteria *Q: - Stroke *Q Stroke Criteria *Q: - AMI *Q AMI Criteria *Q:
[2017-04-09 13:46] VITALS: BP 158/85
== END 2017-04-09 15:19 | disposition home or self-care (01) | DRG 765 ==
LOC: JD.OBCHECK 07:17 → JD.WOMH 07:17 → JD.OB 10:28 → JD.OBCHECK 11:50 → JD.OB 11:51
PROVIDERS: ADMIT Obstetrics & Gynecology; ATTEND Obstetrics & Gynecology
PROC: 10D00Z1 Extraction of Products of Conception, Low, Open Approach (ICD-10-PCS; principal; 2017-04-07)
PROC: 30233N1 Transfusion of Nonautologous Red Blood Cells into Peripheral Vein, Percutaneous Approach (ICD-10-PCS; 2017-04-08)
DX: O42.02 Full-term premature rupture of membranes, onset of labor within 24 hours of rupture (principal); O30.003 Twin pregnancy, unspecified number of placenta and unspecified number of amniotic sacs, third trimester; Z3A.38 38 weeks gestation of pregnancy; Z37.2 Twins, both liveborn; O99.824 Streptococcus B carrier state complicating childbirth; O32.1XX0 Maternal care for breech presentation, not applicable or unspecified; O34.211 Maternal care for low transverse scar from previous cesarean delivery; N85.8 Other specified noninflammatory disorders of uterus; O99.334 Smoking (tobacco) complicating childbirth; O99.02 Anemia complicating childbirth
CPT/HCPCS: 01961; 36415; 36430; 85025; 85027; 86850; 86900; 86901; 86922; 90707; A9270-GY; J0690; J1885; J2274; J2590; J2765; J7040; J7042; J7120; P9016

== ENCOUNTER 2021-02-10 08:56 | Inpatient (IN) | payer SELFPAY ==
[2021-02-10] MEDS ORDERED: Oxytocin 10 Units/1 ML SDV ONE (09:04)
--- NOTE | 2021-02-10 09:31 | PCM.LDHP ---
L&D History of Present Illness - General Date of Service: 02/10/21 Admit Problem/Dx: Admission Diagnosis/Problem Admission Diagnosis/Problem Source of Information: Patient History Limitations: Reports: No Limitations - History of Present Illness Introduction:: Ryann Harper is a 25-year-old now -1-0-5 (1 set of twins) female who had spontaneous delivery at uncertain gestational age at 08:17 on 02/10/2021 in the ambulance during transport from [place]. Patient did not have any care during this because her last baby had done well without any care during the . Patient has a history of 3 previous sections with the first 1 done for nonreassuring heart tones. Her second section was done due to twin gestation with abnormal presentation of the presenting twin. The third section was done due to history of x2. She did not receive care during her last as well. She reports that she was woken up from sleeping due to cramping and pain in her lower abdomen at around 7 AM. She continued to have contractions at home and then at around 8 AM her sister called the ambulance due to the amount of pain that she was having. She denies any leaking of fluid or vaginal bleeding prior to getting in the ambulance. Per the paramedics report the patient started having strong contractions and felt like she needed to push and deliver the infant. They pulled over to the side of the road and the infant was delivered vaginally without any difficulty. The placenta was then delivered spontaneously afterwards without any difficulty. - Related Data Allergies/Adverse Reactions: Allergies Allergy/AdvReac Type Severity Reaction Status Date / Time No Known Allergies Allergy Verified 02/10/21 09:22 Home Medications: Home Meds Acetaminophen/oxyCODONE [Percocet 325-5 MG] 1 - 2 tab PO Q6H PRN #20 tablet 01/26/19 [Rx] Docusate Sodium [Colace] 100 mg PO BID PRN cap 01/26/19 [Rx] Past Medical History - Past Health History Medical/Surgical History: Denies Medical/Surgical History Cardiovascular History: Reports: None Respiratory History: Reports: None Gastrointestinal History: Reports: None HOME HEALTH SCHEDULER History: Reports: : 4 Para: 4 Other OB/BYN History: 3 sections, Twins 2nd Psychiatric History: Reports: Depression (denies) Endocrine/Metabolic History: Reports: Obesity/BMI 30+ Oncologic (Cancer) History: Reports: None - Past Surgical History HEENT Surgical History: Reports: Tonsillectomy Female Surgical History: Reports: Section (06/09/2012, 04/07/2017, 01/25/2019) Social & Family History - Family History Family Medical History: No Pertinent Family History - Tobacco Use Tobacco Use Status *Q: Current Every Day Tobacco User (reports 1 cigarette per day) - Tobacco Core Measures Tobacco Use/Smoking Within Last 30 Days: Yes Smoking Frequency Within Last 30 Days: Reports: Four or Less Cigarettes Per Day Desires Tobacco Cessation Medication: Refuses FDA Approved Med - Caffeine Use Caffeine Use: Reports: Soda - Alcohol Use Alcohol Use History: No - Recreational Drug Use Recreational Drug Use: No Drug Use in Last 12 Months: No H&P Review of Systems - Review of Systems: Review Of Systems: See Below General: Denies: Fever, Chills, Malaise, Fatigue HEENT: Denies: Headaches, Rhinitis, Sore Throat, Vertigo, Visual Changes Pulmonary: Denies: Shortness of Breath, Wheezing, Pleuritic Chest Pain, Cough Cardiovascular: Denies: Chest Pain, Palpitations, Dyspnea on Exertion, Orthopnea Gastrointestinal: Denies: Abdominal Pain, Constipation, Diarrhea, Nausea, Vomiting Genitourinary: Denies: Dysuria, Frequency, Burning, Pain, Urgency Skin: Denies: Rash, Lesions L&D Exam - Exam Exam: See Below - Exam General: Alert, Oriented HEENT: Conjunctiva Clear, EOMI Neck: Supple, Trachea Midline Lungs: Clear to Auscultation, Normal Respiratory Effort Cardiovascular: Regular Rate, Regular Rhythm GI/Abdominal Exam: Soft, Non-Tender, No Distention. No: Guarding, Rigid, Rebound Genitourinary: Enlarged uterus (Uterus 3 to 4 fingerbreadths below the umbilicus), Vaginal bleeding (Minimal amount of lochia). No: Vaginal tears Extremities: Normal Inspection, Non-Tender, No Pedal Edema Skin: Warm, Dry, Intact Psychiatric: Alert, Normal Affect, Normal Mood - Problem List (1) Vaginal delivery SNOMED Code(s): 026715476 ICD Code: O80 - ENCOUNTER FOR FULL-TERM UNCOMPLICATED DELIVERY Status: Acute Current Visit: Yes (2) delivery SNOMED Code(s): 131733936, 734303422 ICD Code: O60.10X0 - LABOR W DELIVERY, UNSP TRIMESTER, UNSP Status: Acute Current Visit: Yes (3) History of delivery affecting SNOMED Code(s): 281931672, 572571341 ICD Code: O34.219 - MATERNAL CARE FOR UNSP TYPE SCAR FROM PREVIOUS DEL Status: Acute Current Visit: No (4) No care in current SNOMED Code(s): 692168478 ICD Code: O09.30 - SUPRVSN OF PREG W INSUFFICIENT ANTENAT CARE, UNSP TRIMESTER Status: Acute Current Visit: No Qualifiers: Trimester: third trimester Qualified Code(s): O09.33 - Supervision of with insufficient care, third trimester Problem List Initiated/Reviewed/Updated: Yes Assessment/Plan Comment:: Ryann Harper is a 25-year-old -1-0-5 female status post precipitous vaginal delivery at uncertain gestational age in the ambulance with complicated by no care during and history of section x3 Admit to inpatient following spontaneous vaginal delivery Patient given Pitocin IM 10 units due to lack of IV access Regular diet Vitals per unit routine Ibuprofen and Tylenol for pain control Continue to monitor lochia Obtain labs including blood type, antibody screen, CBC, hepatitis B surface antigen, hepatitis C, RPR, HIV and rubella. We will get a urinalysis and urine drug screen as well due to no care COVID-19 swab for routine screening Anticipate discharge home on day #0 after patient has been monitored for several hours so that patient can travel to hospital in [place] as the is going to be transferred for NICU care Bruce Faith MD 9:54 AM 02/10/2021
[2021-02-10] MEDS ORDERED: Hydrocortisone Acetate 25 MG Supp RECTAL PRN (09:32)
[2021-02-10] MEDS ORDERED: Ibuprofen 600 MG Tab PO PRN (09:32)
[2021-02-10] MEDS ORDERED: Acetaminophen 325 MG Tab PO PRN (09:32)
[2021-02-10] MEDS ORDERED: Oxytocin 10 Units/1 ML SDV IM ONE (09:32)
[2021-02-10] MEDS ORDERED: Benzocaine/Menthol 20%-0.5% Spray 78 GM Cannister TOP PRN (09:32)
[2021-02-10] MEDS ORDERED: Witch Hazel Medicated Pads 40/Jar TOP PRN (09:32)
[2021-02-11] MEDS ORDERED: Prenatal Multivitamin with Calcium/Folic Acid/Iron Tab PO SCH (09:00)
--- NOTE | 2021-02-11 12:14 | PCM.DCSUM1 ---
Discharge Summary - Hospital Course Free Text/Narrative:: Ryann Harper is a 25-year-old now -1-0-5 (1 set of twins) female who had spontaneous delivery at uncertain gestational age at 08:17 on 02/10/2021 in the ambulance during transport from [place]. Patient did not have any care during this because her last baby had done well without any care during the . Patient has a history of 3 previous sections with the first 1 done for nonreassuring heart tones. Her second section was done due to twin gestation with abnormal presentation of the presenting twin. The third section was done due to history of x2. She did not receive care during her last as well. She reports that she was woken up from sleeping due to cramping and pain in her lower abdomen at around 7 AM. She continued to have contractions at home and then at around 8 AM her sister called the ambulance due to the amount of pain that she was having. She denies any leaking of fluid or vaginal bleeding prior to getting in the ambulance. Per the paramedics report the patient started having strong contractions and felt like she needed to push and deliver the . They pulled over to the side of the road and the was delivered vaginally without any difficulty. The placenta was then delivered spontaneously afterwards without any difficulty. : Her vital signs been stable. She is been afebrile. The baby is transferred to the NICU at [facility] in [place]. The patient was discharged to home. Diagnosis: Stroke: No - Discharge Data Discharge Date: 02/11/21 Discharge Disposition: Home, Self-Care 01 Condition: Good - Referral to Home Health Primary Care Physician: Bruce Faith MD - Discharge Diagnosis/Problem(s) (1) delivery SNOMED Code(s): 188052788, 141075357 ICD Code: O60.10X0 - LABOR W DELIVERY, UNSP TRIMESTER, UNSP Status: Acute Current Visit: Yes (2) Vaginal delivery SNOMED Code(s): 987090399 ICD Code: O80 - ENCOUNTER FOR FULL-TERM UNCOMPLICATED DELIVERY Status: Acute Current Visit: Yes - Patient Summary/Data Consults: Consultations 02/10/21 10:53 Consult to Case Management/Section Housekeeper [CONS] Routine - Patient Instructions Diet: Regular Diet as Tolerated Activity: As Tolerated ([place] or tampons until bleeding resolves) Driving: May Drive Today Showering/Bathing: May Shower (May take a bath take a bath) - Discharge Plan Home Medications: Home Meds Acetaminophen [Tylenol] 650 mg PO Q6H PRN tablet 02/11/21 [Rx] Ibuprofen [Motrin] 600 mg PO Q6H PRN tablet 02/11/21 [Rx] Vit with Ca/FA/Iron [ Plus Iron] 1 each PO DAILY tablet 02/11/21 [Rx] Patient Handouts: Care After Vaginal Delivery, Steps to Quit Smoking Referrals: Alexis Toure MD [Physician] - (Return to clinic[facility]. [facility] to 4 weeks.) - Discharge Summary/Plan Comment DC Time >30 min.: No Total # of Minutes for Discharge Time: 10 minutes Discharge Summary/Plan Comment: Discharge instructions: 1. Discharge home 2. Diet, activity and follow-up discussed with patient. 3. Precautions given concern increased pain, bleeding, temperature, signs/symptoms of DVT/PE. 4. Medications per home medication was printed, discussed with and given to the patient. 5. Return to clinic-Dr. Faith[facility] in 2 weeks. Diagnosis: -delivered in the ambulance entrance into the hospital. Condition: Good - Patient Data Vitals - Most Recent: Last Vital Signs Temp 36.4 C 02/10/21 21:00 Pulse 84 02/11/21 02:17 Resp 14 02/10/21 21:00 BP 115/70 02/11/21 02:17 Pulse Ox 98 02/11/21 02:17 I&O - Last 24 hours: Intake & Output 02/10/21 02/11/21 02/11/21 22:59 06:59 14:59 Intake Total 320 240 Balance 320 240 Lab Results - Last 24 hrs: Laboratory Results - last 24 hr 02/10/21 02/10/21 02/10/21 Range/Units 10:50 11:35 11:35 Urine Color Red H (Yellow) Urine Appearance Turbid H (Clear) Urine pH 6.5 (5.0-8.0) Ur Specific [place] 1.015 (1.005-1.030) Urine Protein 3+ H (Negative) Urine Glucose (UA) Trace H (Negative) Urine Ketones 1+ H (Negative) Urine Occult Blood 3+ H (Negative) Urine Nitrite Positive H (Negative) Urine Bilirubin 3+ H (Negative) Urine Urobilinogen 2.0 H (0.2-1.0) Ur Leukocyte Esterase 3+ H (Negative) Urine RBC Too numerous to cnt H (0-5) /hpf Urine WBC 10-20 H (0-5) /hpf Ur Epithelial Cells Not seen (0-5) /hpf Urine Bacteria Many H (FEW) /hpf Urine Mucus Moderate H (FEW) /hpf Urine Opiates Screen Negative (FIKEIO=954) Ur Oxycodone Screen Negative (GTO0OK=992) Urine Methadone Screen Negative (ZUUJTJ=135) Ur Propoxyphene Screen Negative (ITILOS=507) Ur Barbiturates Screen Negative (EHFDWI=314) Ur Tricyclics Screen Negative (CNPEYQ=164) Ur Phencyclidine Scrn Negative (CUTOFF=25) Ur Amphetamine Screen Negative (ZJQYDW=542) U Methamphetamines Scrn Negative (HDFWZG=741) U Benzodiazepines Scrn Negative (OFUTAN=050) U Cocaine Metab Screen Negative (HOBHIJ=642) U Marijuana (THC) Screen Negative (CUTOFF=50) RPR Non-reactive (NONREACTIVE) Med Orders - Current: Current Medications Acetaminophen (Acetaminophen 325 Mg Tab) 650 mg PO Q6H PRN PRN Reason: mild pain or fever Benzocaine/Menthol (Benzocaine/Menthol 20%-0.5% [place] 78 Gm Cannister) 0 gm TOP ASDIRECTED PRN PRN Reason: Perineal Comfort Measure Hydrocortisone Acetate (Hydrocortisone Acetate 25 Mg Supp) 25 mg RECTAL BID PRN PRN Reason: Hemorrhoid pain Ibuprofen (Ibuprofen 600 Mg Tab) 600 mg PO Q6H PRN PRN Reason: Mild pain or fever Last Admin: 02/10/21 11:08 Dose: 600 mg Documented by: Prenat Multivit/[place]/Iron/Folic Ac ( Multivitamin With Calcium/Folic Acid/Iron Tab) 1 each PO DAILY LEELEE Witch Traci (Witch Traci Medicated Pads 40/Jar) 1 pad TOP ASDIRECTED PRN PRN Reason: Perineal Comfort Measure Discontinued Medications Oxytocin (Oxytocin 10 Units/1 Ml Sdv) 10 unit IM ONETIME ONE Stop: 02/10/21 09:33 Last Admin: 02/10/21 09:17 Dose: 10 unit Documented by: Oxytocin (Oxytocin 10 Units/1 Ml Sdv) Confirm Administered Dose 10 unit .ROUTE .STK-MED ONE Stop: 02/10/21 09:05 Last Admin: 02/10/21 11:09 Dose: Not Given Documented by:
[2021-02-11 13:44] VITALS: BP 125/67; PULSE 97
== END 2021-02-11 12:25 | disposition home or self-care (01) | DRG 776 ==
LOC: JD.OB 08:56
PROVIDERS: ADMIT Obstetrics & Gynecology; ATTEND Obstetrics & Gynecology
DX: Z39.0 Encounter for care and examination of mother immediately after delivery (principal); Z20.822 Contact with and (suspected) exposure to COVID-19
CPT/HCPCS: 36415; 80306; 81001; 85027; 86592; 86762; 86803; 86850; 86900; 86901; 87086; 87340; A9270-GY; G0475; J2590; U0002